=== PATIENT | male | born 1950 | race Caucasian/White ===

== ENCOUNTER 2020-06-14 08:25 | Emergency (ER) | payer OTHER, MEDICARE ==
[2020-06-14 08:31] VITALS: BMI 24.7
[2020-06-14] MEDS ORDERED: BAMLANIVIMAB 700 MG in SODIUM CHLORIDE 250 ML IVPB ONE (09:10)
[2020-06-14 10:15] VITALS: TEMP 98
[2020-06-14 11:29] LABS: EOS % 1.6 % (0-4.5); HEMATOCRIT 41.4 % (35.4-49); HEMOGLOBIN 14.3 GM/dL (11.7-16.9); LYMPH % 28.8 % (8-40); MCH 31.2 pg (25.7-33.7); MCHC 34.7 g/dl (32.0-35.9); MEAN CELL VOLUME 89.9 fl (80-96); MEAN PLT VOLUME 8.4 fl (7.5-11.1); MONO % 9.1 % (3.8-10.2); NEUT % 59.5 % (42.8-82.8); PLATELET COUNT 150 K/MM3 (134-434); RDW 13.5 % (11.9-15.9); WHITE BLOOD COUNT 7.2 K/mm3 (4.0-10.0)
[2020-06-14 11:59] LABS: CALCIUM 8.9 mg/dL (8.5-10.1); POTASSIUM 4.5 mmol/L (3.5-5.1)
[2020-06-14 12:00] LABS: ALBUMIN 3.9 g/dl (3.4-5.0); BLOOD UREA NITROGEN 15.6 mg/dL (7-18)
[2020-06-14 12:03] LABS: CREATININE 1.4 mg/dL (0.55-1.3)
[2020-06-14 12:04] LABS: BILIRUBIN,TOTAL 0.5 mg/dL (0.2-1); TOT PROT 6.9 g/dl (6.4-8.2)
[2020-06-14 12:51] VITALS: BP 128/68; PULSE 72
== END 2020-06-14 12:51 | disposition home or self-care (01) ==
LOC: JER 08:25 → JCOVINFU 08:25
DX: U07.1 COVID-19 (principal)
CPT/HCPCS: 36415; 80053; 85025; 99284-25; M0239; Q0239